=== PATIENT | male | born 1950 | race Two or more races ===

== ENCOUNTER 2018-05-02 18:49 | Emergency (ER) | payer SELFPAY ==
[2018-05-02 19:27] VITALS: BP 114/78; PULSE 67; RESP 18; TEMP 98; O2SAT 99
--- NOTE | 2018-05-02 19:42 | ED PDOC ---
HPI: Headache Time Seen by Provider: 05/02/18 19:40 Chief Complaint (Nursing): Headache Chief Complaint (Provider): facial swelling History Per: Patient (67 y/o male here with swelling along forehead noted x few years. Patient concerned regarding this. States he at times has headaches but does not feel its related. Currently no headaches.) Past Medical History Reviewed: Historical Data, Nursing Documentation, Vital Signs Vital Signs: Last Vital Signs Temp 98.0 F 05/02/18 19:22 Pulse 67 05/02/18 19:22 Resp 18 05/02/18 19:22 BP 114/78 05/02/18 19:22 Pulse Ox 99 05/02/18 19:22 - Family History Family History: States: No Known Family Hx - Allergies Allergies/Adverse Reactions: Allergies Allergy/AdvReac Type Severity Reaction Status Date / Time No Known Allergies Allergy Verified 05/02/18 19:22 Review of Systems ROS Statement: Except As Marked, All Systems Reviewed And Found Negative Physical Exam - Reviewed Nursing Documentation Reviewed: Yes Vital Signs Reviewed: Yes - Physical Exam Appears: Positive for: Well, Non-toxic, No Acute Distress Head Exam: Positive for: NORMAL INSPECTION, NORMOCEPHALIC. Negative for: ATRAUMATIC (1.5 cm tumor noted front region of head. no signs of erythema/ fluctuance/tenderness.) Skin: Positive for: Normal Color, Warm, DRY Eye Exam: Positive for: EOMI, Normal appearance, PERRL ENT: Positive for: Normal ENT Inspection Neck: Positive for: Normal, Painless ROM Cardiovascular/Chest: Positive for: Regular Rate, Rhythm Respiratory: Positive for: CNT, Normal Breath Sounds Gastrointestinal/Abdominal: Positive for: Normal Exam, Soft Back: Positive for: Normal Inspection Extremity: Positive for: Normal ROM Neurologic/Psych: Positive for: Alert, Oriented - ECG O2 Sat by Pulse Oximetry: 99 Disposition - Clinical Impression Clinical Impression: [place] - Patient ED Disposition Is Patient to be Admitted: No - Disposition Referrals: [facility] [Outside] Disposition: Routine/Home Disposition Time: 19:42 Condition: FAIR Instructions: [place]
== END 2018-05-02 20:05 | disposition home or self-care (01) ==
LOC: H.ER 18:49
DX: D17.9 Benign lipomatous neoplasm, unspecified (principal)